=== PATIENT | female | born 1940 | race Caucasian/White ===

== ENCOUNTER → 2017-02-25 | Outpatient (CLI) | payer MEDICARE, BC ==
[2012-07-16 19:02] VITALS: BP 184/72
[~2017-02-25] MED LIST: CALCIUM W/VITAM1 TAB PO; DUO-KAPS1 CAP PO; LEVOTHYROXIN0.088 MG PO; LUTEIN20 M1 PO; PRILOSEC 20MG20 MG PO; SIMVASTATIN20 MG PO; ST. JOSEPH81 M2 PO; XANAX0.25 MG PO; [UNRECOGNIZED DRUG - OTHER] MR
== END ==
LOC: MAMMO 10:32
DX: Z12.31 Encounter for screening mammogram for malignant neoplasm of breast (principal); N63 Unspecified lump in breast
CPT/HCPCS: G0202

== ENCOUNTER → 2017-03-06 | Outpatient (CLI) | payer MEDICARE, BC ==
[2012-07-16 19:02] VITALS: BP 184/72
== END ==
LOC: MAMMO 12:51
DX: Z09 Encounter for follow-up examination after completed treatment for conditions other than malignant neoplasm (principal); N63 Unspecified lump in breast

== ENCOUNTER 2017-11-22 08:30 | Emergency (ER) | payer MEDICARE, BC ==
[~2017-11-22] VITALS: Wt 72.8 kg
[~2017-11-22 08:30] MED LIST changes: +LEVOTHYROXIN0.075 MG PO; -LEVOTHYROXIN0.088 MG PO; +MELOXICAM15 MG PO; -[UNRECOGNIZED DRUG - OTHER] MR
[2017-11-22] MEDS ORDERED: KEPPRA 500MG500 MG PO (09:03)
[2017-11-22] MEDS ORDERED: ANASTROZOLE1 M1 PO (09:03)
[2017-11-22] MEDS ORDERED: AMIODARONE PO (09:04)
[2017-11-22] MEDS ORDERED: LISINOPRIL20 MG PO (09:05)
[2017-11-22] MEDS ORDERED: TEMAZEPAM PO (09:10)
[2017-11-22 09:55] LABS: HEMATOCRIT 32.8 % (37.0-47.0); HEMOGLOBIN 9.8 g/dL (12.5-16.0); MEAN CELL VOLUME 84 fl (78-100); MEAN CORPUSCULAR HEMOGLOBIN 25 pg (27-31); MEAN CORPUSCULAR HGB CONC 30 g/dL (33-37); MEAN PLATELET VOLUME 9.8 fl (7.4-10.4); PLATELET COUNT 211 K/mm3 (130-400); RED BLOOD COUNT 3.93 M/mm3 (4.10-5.30); RED CELL DISTRIBUTION WIDTH 15.6 % (11.5-14.5); WHITE BLOOD COUNT 6.9 K/mm3 (4.8-10.8)
[2017-11-22 10:14] LABS: ALBUMIN 3.5 g/dL (3.5-5.0); BUN/CREATININE RATIO 14.5 (6.0-26.0); CALCIUM 8.6 mg/dL (8.4-10.2); POTASSIUM 4.3 mmol/L (3.6-5.0); TOTAL BILIRUBIN 0.2 mg/dL (0.2-1.3)
[2017-11-22 10:23] LABS: LYMPHOCYTE 4 % (20-51); MONOCYTE 6 % (3-10); NEUTROPHILS 90 % (42-75)
[2017-11-22 11:45] VITALS: BP 145/59
== END 2017-11-22 12:00 | disposition home or self-care (01) ==
LOC: ED 08:30
PROVIDERS: Family Medicine
DX: S01.81XA Laceration without foreign body of other part of head, initial encounter (principal); R55 Syncope and collapse; I10 Essential (primary) hypertension; G40.909 Epilepsy, unspecified, not intractable, without status epilepticus; K21.9 Gastro-esophageal reflux disease without esophagitis; E03.9 Hypothyroidism, unspecified; Z85.3 Personal history of malignant neoplasm of breast; I51.9 Heart disease, unspecified; W18.12XA Fall from or off toilet with subsequent striking against object, initial encounter; R00.1 Bradycardia, unspecified; K44.9 Diaphragmatic hernia without obstruction or gangrene; Z79.82 Long term (current) use of aspirin
CPT/HCPCS: A4550; J7030

== ENCOUNTER → 2018-09-07 | Day surgery (SDC) | payer MEDICARE, BC ==
[~2018-09-07] MED LIST changes: +AMIODARONE PO; +ANASTROZOLE1 M1 PO; +KEPPRA 500MG500 MG PO; +LISINOPRIL20 MG PO; +TEMAZEPAM PO
== END ==
LOC: MSO 08:11
DX: D50.9 Iron deficiency anemia, unspecified (principal); K44.9 Diaphragmatic hernia without obstruction or gangrene; K29.70 Gastritis, unspecified, without bleeding; K29.80 Duodenitis without bleeding; R19.5 Other fecal abnormalities; I10 Essential (primary) hypertension; G40.909 Epilepsy, unspecified, not intractable, without status epilepticus; K21.9 Gastro-esophageal reflux disease without esophagitis; Z79.899 Other long term (current) drug therapy; Z79.82 Long term (current) use of aspirin; G47.00 Insomnia, unspecified; E07.9 Disorder of thyroid, unspecified; Z85.3 Personal history of malignant neoplasm of breast
CPT/HCPCS: 00813; A4649; J2704; J7120

== ENCOUNTER 2018-10-26 19:41 | Emergency (ER) | payer MEDICARE, BC ==
[2018-10-26 21:00] VITALS: BP 177/82
== END 2018-10-26 21:00 | disposition home or self-care (01) ==
LOC: ED 19:41
DX: S01.81XA Laceration without foreign body of other part of head, initial encounter (principal); W10.8XXA Fall (on) (from) other stairs and steps, initial encounter; Y92.008 Other place in unspecified non-institutional (private) residence as the place of occurrence of the external cause; Z79.899 Other long term (current) drug therapy; Z79.82 Long term (current) use of aspirin; F17.200 Nicotine dependence, unspecified, uncomplicated

== ENCOUNTER 2018-10-31 10:48 | Emergency (ER) | payer MEDICARE, BC ==
[2018-10-31 11:26] VITALS: BP 157/76
== END 2018-10-31 12:07 | disposition home or self-care (01) ==
LOC: ED 10:48
DX: Z48.02 Encounter for removal of sutures (principal)

== ENCOUNTER → 2019-04-28 | Day surgery (SDC) | payer MEDICARE, BC | LOC: MSO 09:57 | DX: H26.9 Unspecified cataract (principal) | CPT/HCPCS: 11950 ==

== ENCOUNTER 2019-06-08 04:39 | Emergency (ER) | payer MEDICARE, BC ==
[2019-06-08] MEDS ORDERED: LISINOPRIL40 MG PO (04:56)
[2019-06-08] MEDS ORDERED: APAP ARTHRITIS650 MG PO (04:56)
[2019-06-08] MEDS ORDERED: AMIODARONE HCL100 MG PO (04:57)
[2019-06-08] MEDS ORDERED: MULTIVITAMIN1 SGL PO (04:58)
[2019-06-08] MEDS ORDERED: VITAMIN C500 M7 PO (04:59)
[2019-06-08] MEDS ORDERED: IRON90 MG PO (04:59)
[2019-06-08] MEDS ORDERED: VITAMIN D400 UNI1 PO (04:59)
[2019-06-08] MEDS ORDERED: GOOD NEIGHBOR100 M2 PO (05:00)
[2019-06-08] MEDS ORDERED: MELATONIN10 MG PO (05:02)
[2019-06-08] MEDS ORDERED: OMEPRAZOLE40 MG PO (05:02)
[2019-06-08 05:49] LABS: HEMATOCRIT 41.8 % (37.0-47.0); HEMOGLOBIN 14.5 g/dL (12.5-16.0); MEAN CELL VOLUME 95 fl (78-100); MEAN CORPUSCULAR HEMOGLOBIN 33 pg (27-31); MEAN CORPUSCULAR HGB CONC 35 g/dL (33-37); MEAN PLATELET VOLUME 9.1 fl (7.4-10.4); PLATELET COUNT 242 K/mm3 (130-400); RED BLOOD COUNT 4.39 M/mm3 (4.10-5.30); RED CELL DISTRIBUTION WIDTH 11.9 % (11.5-14.5); WHITE BLOOD COUNT 10.3 K/mm3 (4.8-10.8)
[2019-06-08 06:04] LABS: ALBUMIN 4.3 g/dL (3.4-4.8); POTASSIUM 4.5 mmol/L (3.5-5.1)
[2019-06-08 06:05] LABS: CALCIUM 10.7 mg/dL (8.3-10.5)
[2019-06-08 06:06] LABS: TOTAL PROTEIN 7.9 g/dL (6.2-8.1)
[2019-06-08 06:08] LABS: TOTAL BILIRUBIN 0.6 mg/dL (0.2-1.2)
[2019-06-08 06:21] LABS: URINE APPEARANCE CLEAR; URINE COLOR YELLOW
[2019-06-08 06:21] LABS: LYMPHOCYTE 3 % (20-51); MONOCYTE 4 % (3-10); NEUTROPHILS 93 % (42-75)
[2019-06-08 06:22] LABS: URINE BILIRUBIN NEGATIVE (NEGATIVE); URINE BLOOD TRACE (NEGATIVE); URINE GLUCOSE NEGATIVE (NEGATIVE); URINE KETONE NEGATIVE (NEGATIVE); URINE LEUKOCYTE ESTERASE TRACE (NEGATIVE); URINE NITRATE NEGATIVE (NEGATIVE); URINE PROTEIN(semi-quant) NEGATIVE (NEGATIVE); URINE UROBILINOGEN NORMAL (NORMAL); URINE WBC 0-1 /hpf (0-3)
[2019-06-08] MEDS ORDERED: NORCO 325 MG-51 TA1 PO (08:17)
[2019-06-08] MEDS ORDERED: ZOFRAN4 M2 PO (08:17)
[2019-06-08 08:25] VITALS: BP 126/61
== END 2019-06-08 08:31 | disposition home or self-care (01) ==
LOC: ED 04:39
PROVIDERS: Nurse Practitioner
DX: R10.11 Right upper quadrant pain (principal); I10 Essential (primary) hypertension; K21.9 Gastro-esophageal reflux disease without esophagitis; F41.9 Anxiety disorder, unspecified; E07.9 Disorder of thyroid, unspecified; Z85.3 Personal history of malignant neoplasm of breast; Z98.51 Tubal ligation status; Z87.891 Personal history of nicotine dependence; Z90.710 Acquired absence of both cervix and uterus; Z79.82 Long term (current) use of aspirin
CPT/HCPCS: J2405; J3010; Q9967

== ENCOUNTER → 2019-06-10 | Outpatient (CLI) | payer MEDICARE, BC ==
[2019-06-08 08:25] VITALS: BP 126/61
[~2019-06-10] MED LIST changes: +AMIODARONE HCL100 MG PO; +APAP ARTHRITIS650 MG PO; +GOOD NEIGHBOR100 M2 PO; +IRON90 MG PO; +LISINOPRIL40 MG PO; +MELATONIN10 MG PO; +MULTIVITAMIN1 SGL PO; +NORCO 325 MG-51 TA1 PO; +OMEPRAZOLE40 MG PO; +VITAMIN C500 M7 PO; +VITAMIN D400 UNI1 PO; +ZOFRAN4 M2 PO
== END ==
LOC: RAD 07:02
DX: K76.89 Other specified diseases of liver (principal)

== ENCOUNTER → 2019-07-05 | Day surgery (SDC) | payer MEDICARE, BC ==
[2019-06-08 08:25] VITALS: BP 126/61
== END ==
LOC: MSO 07:23
DX: K44.9 Diaphragmatic hernia without obstruction or gangrene (principal); R10.13 Epigastric pain; R63.0 Anorexia; R63.4 Abnormal weight loss; Z79.899 Other long term (current) drug therapy; Z79.82 Long term (current) use of aspirin; I10 Essential (primary) hypertension; K21.9 Gastro-esophageal reflux disease without esophagitis; Z95.818 Presence of other cardiac implants and grafts; E03.9 Hypothyroidism, unspecified; F41.9 Anxiety disorder, unspecified; Z85.3 Personal history of malignant neoplasm of breast; Z92.3 Personal history of irradiation; Z90.710 Acquired absence of both cervix and uterus; E78.2 Mixed hyperlipidemia; F40.01 Agoraphobia with panic disorder; D50.9 Iron deficiency anemia, unspecified; I47.2 Ventricular tachycardia; M81.0 Age-related osteoporosis without current pathological fracture; G40.209 Localization-related (focal) (partial) symptomatic epilepsy and epileptic syndromes with complex partial seizures, not intractable, without status epilepticus; I47.1 Supraventricular tachycardia; M17.0 Bilateral primary osteoarthritis of knee; G47.00 Insomnia, unspecified; H35.3 Degeneration of macula and posterior pole; Z98.51 Tubal ligation status; Z88.9 Allergy status to unspecified drugs, medicaments and biological substances; Z87.891 Personal history of nicotine dependence
CPT/HCPCS: 00731; J2704; J7120

== ENCOUNTER → 2019-09-23 | Outpatient (CLI) | payer MEDICARE, BC ==
[2019-09-23 16:35] LABS: ALBUMIN 3.1 g/dL (3.4-4.8); POTASSIUM 5.1 mmol/L (3.5-5.1)
[2019-09-23 16:36] LABS: CALCIUM 9.5 mg/dL (8.3-10.5)
[2019-09-23 16:38] LABS: TOTAL PROTEIN 6.1 g/dL (6.2-8.1)
[2019-09-23 16:39] LABS: HEMATOCRIT 37.9 % (37.0-47.0); HEMOGLOBIN 12.7 g/dL (12.5-16.0); MEAN CELL VOLUME 96 fl (78-100); MEAN CORPUSCULAR HEMOGLOBIN 32 pg (27-31); MEAN CORPUSCULAR HGB CONC 34 g/dL (33-37); MEAN PLATELET VOLUME 8.9 fl (7.4-10.4); PLATELET COUNT 381 K/mm3 (130-400); RED BLOOD COUNT 3.97 M/mm3 (4.10-5.30); RED CELL DISTRIBUTION WIDTH 13.3 % (11.5-14.5); TOTAL BILIRUBIN 0.8 mg/dL (0.2-1.2)
[2019-09-23 17:48] LABS: WHITE BLOOD COUNT 38.7 K/mm3 (4.8-10.8)
[2019-09-23 17:50] LABS: BAND 3 % (0-10); NEUTROPHILS 90 % (42-75)
[2019-09-23 17:51] LABS: LYMPHOCYTE 3 % (20-51); MONOCYTE 4 % (3-10)
== END ==
LOC: LAB 16:03
PROVIDERS: Internal Medicine Cardiovascular Disease
DX: R10.9 Unspecified abdominal pain (principal); R41.89 Other symptoms and signs involving cognitive functions and awareness; R53.1 Weakness